=== PATIENT | female | born 1965 | race Caucasian/White ===

== ENCOUNTER 2017-10-04 09:04 | Emergency (ER) | payer BC ==
[2017-10-04 09:47] VITALS: BP 132/73
--- NOTE | 2017-10-04 10:09 | UC ---
Eye Complaint HPI - HPI Summary HPI Summary: patient has had increase redness and drainage from the right eye. sinus pressure , ear fullness and productive cogh for 3 weeks - History of Current Complaint Chief Complaint: UCEye Stated Complaint: RIGHT EYE COMPLAINT,SINUS Time Seen by Provider: 10/04/17 09:45 Hx Obtained From: Patient Hx Last Menstrual Period: 2000 ?: No Onset/Duration: Sudden Onset, Lasting Weeks Timing: Constant Severity Initially: Mild Severity Currently: Moderate Pain Intensity: 4 Location of Injury: Conjunctiva, Eye Lid (lower), Sclera Associated Signs And Symptoms: Positive: Drainage (Purulent) - Allergies/Home Medications Allergies/Adverse Reactions: Allergies Allergy/AdvReac Type Severity Reaction Status Date / Time seasonal Allergy Eyes Uncoded 10/04/17 09:48 Itchy/Swollen/Red/Watery Home Medications: Home Medications Levothyroxine TAB* [Synthroid TAB*] 137 mcg PO DAILY 10/04/17 [History Confirmed 10/04/17] PMH/Surg Hx/FS Hx/Imm Hx Previously Healthy: Yes - Surgical History Surgical History: Yes Surgery Procedure, Year, and Place: HYSTERECTOMY 2000 - Family History Known Family History: Positive: Cardiac Disease Negative: Hypertension - Social History Alcohol Use: None Substance Use Type: None Smoking Status (MU): Light Every Day Tobacco Smoker Type: eCigarettes Amount Used/How Often: quit 3 years ago- uses ecig now Review of Systems Constitutional: Negative Skin: Negative Eyes: Drainage, Eye Redness ENT: Sore Throat, Ear Ache, Sinus Pain/Tenderness Respiratory: Cough Cardiovascular: Negative Gastrointestinal: Negative Genitourinary: Negative Motor: Negative Neurovascular: Negative Musculoskeletal: Negative Neurological: Headache Psychological: Negative Is Patient Immunocompromised?: No All Other Systems Reviewed And Are Negative: Yes Physical Exam Triage Information Reviewed: Yes Appearance: No Pain Distress, Well-Nourished, Ill-Appearing Vital Signs: Initial Vital Signs Temp 98.2 F 10/04/17 09:36 Pulse 66 10/04/17 09:36 Resp 16 10/04/17 09:36 BP 132/73 10/04/17 09:36 Pulse Ox 100 10/04/17 09:36 Vital Signs Reviewed: Yes Eyes: Positive: Conjunctiva Inflamed, Discharge ENT: Positive: Pharyngeal erythema - with PND, Nasal drainage, TM bulging Dental Exam: Normal Neck exam: Normal Neck: Positive: Supple, Nontender, No Lymphadenopathy Respiratory Exam: Normal Respiratory: Positive: Chest non-tender, Lungs clear, Normal breath sounds Cardiovascular Exam: Normal Cardiovascular: Positive: RRR, No Murmur, Pulses Normal Abdominal Exam: Normal Abdomen Description: Positive: Nontender, No Organomegaly, Soft Bowel Sounds: Positive: Present Musculoskeletal Exam: Normal Neurological Exam: Normal Psychological Exam: Normal Skin Exam: Normal Eye Complaint Course/Dx - Course Course Of Treatment: hx obtained, exam performed ,meds reviewed, treated for sinusitis and conjunctivitis - Differential Dx/Diagnosis Differential Diagnosis/HQI/PQRI: Conjunctivitis Provider Diagnoses: sinusitis. conjunctivitis right eye Discharge - Sign-Out/Discharge Documenting (check all that apply): Patient Departure - Discharge Plan Condition: Stable Disposition: HOME Prescriptions: Amoxicillin PO (*) [Amoxicillin 875 MG (*)] 875 mg PO BID #20 tab Erythromycin OPTH OINT* [Erythromycin 0.5% OPTH OINT*] 1 applic RIGHT EYE TID # 1 ophth.oint Patient Education Materials: Sinusitis (ED) Referrals: Delmi Nielsen NP [Primary Care Provider] - Additional Instructions: 1. use the medication as prescribed. 2. Get plenty of rest and fluids 3. I have givena refill of the erythromycin for a second tube - Billing Disposition and Condition Condition: STABLE Disposition: Home
== END 2017-10-04 10:17 | disposition home or self-care (01) ==
LOC: UCCORT 09:04
DX: H10.9 Unspecified conjunctivitis (principal); J32.9 Chronic sinusitis, unspecified; F17.210 Nicotine dependence, cigarettes, uncomplicated; Z91.09 Other allergy status, other than to drugs and biological substances
CPT/HCPCS: 99212; G0463

== ENCOUNTER 2019-02-17 09:55 | Emergency (ER) | payer BC, OTHER ==
[2019-02-17 10:48] VITALS: BP 140/76
--- NOTE | 2019-02-17 10:57 | UC ---
UC General HPI - HPI Summary HPI Summary: 53 year old female presents with complaint of generalized malaise, feeling feverish with headache, PND and neck pain and pain between her shoulder blades. - History of Current Complaint Chief Complaint: UCGeneralIllness Stated Complaint: FEVER,THOMAS,ACHES Time Seen by Provider: 02/17/19 10:40 Hx Last Menstrual Period: 2000 Pain Intensity: 6 Associated Signs & Symptoms: Positive: Back Pain - achiness between shoulder blades, Dizziness - if she moves too quickly, Headache - not the worse headache she ever had. Negative: Abdominal Pain, Cough, Chest Pain, Diarrhea, Dysuria, SOB, Vomiting, Weakness Related Hx: Recent Illness - treated for bronchitis recently, states those sx have resolved. - Allergy/Home Medications Allergies/Adverse Reactions: Allergies Allergy/AdvReac Type Severity Reaction Status Date / Time seasonal Allergy Eyes Uncoded 02/17/19 10:47 Itchy/Swollen/Red/Watery Home Medications: Home Medications Loratadine [Claritin] 10 mg PO DAILY 02/17/19 [History Confirmed 02/17/19] PMH/Surg Hx/FS Hx/Imm Hx Previously Healthy: Yes GI/ History: Other - IBS with constipation Psychological History: Anxiety, Depression - Surgical History Surgical History: Yes Surgery Procedure, Year, and Place: HYSTERECTOMY 2000. ectopic - Family History Known Family History: Positive: Cardiac Disease Negative: Hypertension - Social History Alcohol Use: None Substance Use Type: None Smoking Status (MU): Light Every Day Tobacco Smoker Type: eCigarettes Amount Used/How Often: "nicotine vape" Review of Systems All Other Systems Reviewed And Are Negative: Yes Constitutional: Positive: Fever, Chills Skin: Positive: Bruising. Negative: Rash Eyes: Positive: Negative ENT: Negative: Sore Throat, Ear Ache, Nasal Discharge, Sinus Congestion, Sinus Pain/Tenderness Respiratory: Negative: Shortness Of Breath, Cough Cardiovascular: Negative: Palpitations, Chest Pain Gastrointestinal: Positive: Abdominal Pain - mild, baseline with her IBS. Negative: Vomiting, Diarrhea, Nausea Genitourinary: Negative: Dysuria, Hematuria, Frequency, Urgency Motor: Positive: Negative Neurovascular: Positive: Negative Musculoskeletal: Positive: Negative Neurological: Positive: Negative Psychological: Positive: Negative Is Patient Immunocompromised?: No Physical Exam Triage Information Reviewed: Yes Appearance: Well-Appearing, No Pain Distress, Well-Nourished Vital Signs: Initial Vital Signs Temp 100 F 02/17/19 10:42 Pulse 92 02/17/19 10:42 Resp 16 02/17/19 10:42 BP 140/76 02/17/19 10:42 Pulse Ox 99 02/17/19 10:42 Eyes: Positive: Conjunctiva Clear ENT: Positive: Normal ENT inspection, Pharynx normal, TMs normal. Negative: Tonsillar swelling, Tonsillar exudate, Sinus tenderness Neck: Positive: Supple, Nontender, No Lymphadenopathy Respiratory: Positive: Lungs clear, Normal breath sounds, Other: - no egophony nor consolidation to palpation.. Negative: Respiratory distress, Crackles, Rhonchi, Wheezing Cardiovascular: Positive: RRR, Brisk Capillary Refill, Murmur:Sys:Grade _?_/ - II Abdomen Description: Positive: Nontender, Soft Bowel Sounds: Positive: Present Musculoskeletal Exam: Normal Neurological Exam: Normal Psychological Exam: Normal Skin Exam: Normal Course/Dx - Course Course Of Treatment: Fever with no obvious source. Non-toxic appearing. Viral illness suspected. If fever persist over the next 48 hours, recommend further evaluation in the ED where lab testing can be performed. - Diagnoses Provider Diagnosis: Viral illness, Fever Discharge ED - Sign-Out/Discharge Documenting (check all that apply): Patient Departure All imaging exams completed and their final reports reviewed: No Studies - Discharge Plan Condition: Stable Disposition: HOME Prescriptions: Ibuprofen TAB* [Motrin TAB* 800 MG] 800 mg PO TID PRN #30 tab PRN Reason: Pain - Moderate Patient Education Materials: Viral Syndrome (ED) Referrals: Keyonna Prasad MD [Primary Care Provider] - Additional Instructions: Drink plenty of fluids, take ibuprofen as needed for fever/body aches. If symptoms persist or worsen or if your fever persists over the next 48 hours, recommend further evaluation with your Primary Care Physician or in the Emergency Department. - Billing Disposition and Condition Condition: STABLE Disposition: Home
== END 2019-02-17 11:27 | disposition home or self-care (01) ==
LOC: UCCORT 09:55
DX: B34.9 Viral infection, unspecified (principal); R50.9 Fever, unspecified; K58.1 Irritable bowel syndrome with constipation; R10.9 Unspecified abdominal pain; F17.290 Nicotine dependence, other tobacco product, uncomplicated; Z91.09 Other allergy status, other than to drugs and biological substances
CPT/HCPCS: 81003; 99212; G0463